=== PATIENT | male | born 1960 | race African-American/Black ===

== ENCOUNTER 2020-05-05 11:33 | Emergency (ER) | payer MEDICAID ==
[~2020-05-05] VITALS: Ht 190.5 cm; Wt 85.9 kg
[2020-05-05 11:37] VITALS: BP 157/95
[2020-05-05] MEDS ORDERED: PERTUSS(ACELL),DIPH,TET VAC/PF 0.5 ML VIAL IM ONE (12:00)
[2020-05-05] MEDS ORDERED: LIDOCAINE 1%/EPI 1:200,000/PF 10 ML VIAL INJ ONE (12:00)
[2020-05-05] MEDS ORDERED: BUPIVACAINE HCL/PF 0.25% 10 ML VIAL INJ ONE (12:00)
[2020-05-05] MEDS ORDERED: POVIDONE-IODINE 10% 15 ML SOLUTION UD TP ONE (12:00)
[2020-05-05] MEDS ORDERED: BACITRACIN 0.9 GM PACKET OINTMENT TP ONE (13:00)
== END 2020-05-05 13:08 | disposition home or self-care (01) ==
LOC: EMS 11:35
DX: S61.211A Laceration without foreign body of left index finger without damage to nail, initial encounter (principal); F17.210 Nicotine dependence, cigarettes, uncomplicated; X58.XXXA Exposure to other specified factors, initial encounter; Y93.89 Activity, other specified; Y92.89 Other specified places as the place of occurrence of the external cause; Y99.8 Other external cause status
CPT/HCPCS: 12002; 90471; 90715; 99283; J3490 ×2

== ENCOUNTER 2020-05-20 09:15 | Emergency (ER) | payer MEDICAID ==
[~2020-05-20] VITALS: Ht 180.3 cm; Wt 72.7 kg
[2020-05-20 10:14] VITALS: BP 145/79
== END 2020-05-20 10:23 | disposition home or self-care (01) ==
LOC: EMS 09:18
DX: Z48.02 Encounter for removal of sutures (principal)
CPT/HCPCS: Z7502